=== PATIENT | female | born 1985 | race American Indian/Alaskan Native ===

== ENCOUNTER 2021-02-08 14:38 | Emergency (ER) | payer OTHER ==
[2021-02-08 16:24] VITALS: BP 121/94
--- NOTE | 2021-02-08 16:27 | Emergency Department Report ---
ED Lower Extremity HPI - General Chief Complaint: Extremity Injury, Lower Stated Complaint: FALL ET LEG PAIN Time Seen by Provider: 02/08/21 16:25 Source: patient Mode of arrival: Wheelchair Limitations: Physical Limitation - History of Present Illness Initial Comments: Patient is a 25-year-old female who presents emergency room after a slip and fall that occurred just prior to arrival. Patient reports that she slipped in some water. She is complaining of right ankle pain and right hip pain. She denies any loss of consciousness, vomiting, vision changes, hitting her head, numbness, weakness, bowel or bladder incontinence. She denies ever injuring this leg in the past. No past medical history. No allergies to medications. - Related Data Previous Rx's Medication Instructions Recorded Last Taken Type Naproxen [EC-Naprosyn] 500 mg PO BID PRN #14 tablet. 02/08/21 Unknown Rx Allergies Allergy/AdvReac Type Severity Reaction Status Date / Time No Known Allergies Allergy Unverified 02/08/21 16:17 ED Review of Systems ROS: Stated complaint: FALL ET LEG PAIN Other details as noted in HPI Comment: All other systems reviewed and negative ED Past Medical Hx - Past Medical History Previous Medical History?: No - Surgical History Past Surgical History?: Yes Additional Surgical History: ectopic PG - Medications Home Medications: Home Medications Medication Instructions Recorded Confirmed Last Taken Type Naproxen [EC-Naprosyn] 500 mg PO BID PRN #14 tablet. 02/08/21 Unknown Rx ED Physical Exam - General Limitations: Physical Limitation General appearance: alert, in no apparent distress - Head Head exam: Present: atraumatic, normocephalic - Eye Eye exam: Present: normal appearance - ENT ENT exam: Present: mucous membranes moist - Respiratory Respiratory exam: Absent: respiratory distress, accessory muscle use - Extremities Exam Extremities exam: Present: other (no bony ttp of the RLE, mild discomfort with flexion of the right ankle, no deformity of the RLE, no edema, no ecchymosis, neurovascularly intact) - Neurological Exam Neurological exam: Present: alert, oriented X3 - Psychiatric Psychiatric exam: Present: normal affect, normal mood - Skin Skin exam: Present: warm, dry, intact ED Course Vital Signs 02/08/21 16:23 Temperature 98.2 F Pulse Rate 74 Respiratory 16 Rate Blood Pressure 121/94 [Right] O2 Sat by Pulse 99 Oximetry ED Lower Extremity MDM - Radiology Data Radiology results: report reviewed Ordering Physician: LUIGI CAMARILLO Date of Service: 02/08/21 Procedure(s): XR ankle 3+V RT Accession Number(s): [id number] cc: LUIGI CAMARILLO Fluoro Time In Minutes: . XR ankle 3+V RT INDICATION / CLINICAL INFORMATION: right ankle pain after slip and fall. COMPARISON: None available. FINDINGS: BONES/JOINT(S): No acute fracture or subluxation. No significant degenerative changes. SOFT TISSUES: No significant abnormality. ADDITIONAL FINDINGS: None. Signer Name: Lowell Del Toro MD Signed: 02/08/2021 4:50 PM Workstation Name: [id number] Transcribed By: GODWIN Dictated By: Lowell Del Toro MD Electronically Authenticated By: Lowell Del Toro MD Signed Date/Time: 02/08/211649 DD/ 49 TD/TT: - Medical Decision Making Patient is a 25-year-old female who presents emergency room after a slip and fall that occurred just prior to arrival. Patient reports that she slipped in some water. She is complaining of right ankle pain and right hip pain. She denies any loss of consciousness, vomiting, vision changes, hitting her head, numbness, weakness, bowel or bladder incontinence. She denies ever injuring this leg in the past. No past medical history. No allergies to medications. Vitals are stable. On exam:no bony ttp of the RLE, mild discomfort with flexion of the right ankle, no deformity of the RLE, no edema, no ecchymosis, neurovascularly intact. X-ray right ankle: BONES/JOINT(S): No acute fracture or subluxation. No significant degenerative changes. SOFT TISSUES: No significant abnormality. ADDITIONAL FINDINGS: None. Patient has no signs of acute traumatic fracture or dislocation. Patient was requesting a UDS for her job, discussed with charge nurse Holli and she states that we do not have capabilities to appropriately run a UDS for workers comp, such as monitoring the pt and making sure there is no tampering with the sample, patient was advised to follow-up with [employer] or [employer] in order to receive an appropriate UDS for her job. Patient given prescription for naproxen. Advised patient Please take medication as prescribed as needed. May use ice pack, rest, elevation of the leg. Follow-up with a primary care doctor. Follow-up with your Worker[employer] doctor. Return to emergency room for any new or worse symptoms. Critical care attestation.: If time is entered above; I have spent that time in minutes in the direct care of this critically ill patient, excluding procedure time. ED Disposition Clinical Impression: Right hip pain Fall Qualifiers: Encounter type: initial encounter Qualified Code(s): W19.XXXA - Unspecified fall, initial encounter Right ankle pain Qualifiers: Chronicity: acute Qualified Code(s): M25.571 - Pain in right ankle and joints of right foot Disposition: 01 HOME / SELF CARE / HOMELESS Is pt being admited?: No Does the pt Need Aspirin: No Condition: Stable Instructions: Musculoskeletal Pain Additional Instructions: Please take medication as prescribed as needed. May use ice pack, rest, elevation of the leg. Follow-up with a primary care doctor. Follow-up with your Worker[employer] doctor. Return to emergency room for any new or worse symptoms. Prescriptions: Naproxen [EC-Naprosyn] 500 mg PO BID PRN #14 tablet.dr DONNELLY Reason: pain Referrals: MAGDI BOLIVAR MD [Staff Physician] - 3-5 Days [facility] [Provider Group] - 3-5 Days Forms: Work/School Release Form(ED) Time of Disposition: 17:11 Print Language: BURKINAN
--- NOTE | 2021-02-08 16:54 | XRay Report ---
. XR ankle 3+V RT INDICATION / CLINICAL INFORMATION: right ankle pain after slip and fall. COMPARISON: None available. FINDINGS: BONES/JOINT(S): No acute fracture or subluxation. No significant degenerative changes. SOFT TISSUES: No significant abnormality. ADDITIONAL FINDINGS: None. Signer Name: Lowell Del Toro MD Signed: 02/08/2021 4:50 PM Workstation Name: [email or web address]
== END 2021-02-08 18:04 | disposition home or self-care (01) ==
LOC: EDBD → ED 14:38
DX: M25.551 Pain in right hip (principal); M25.571 Pain in right ankle and joints of right foot; Z98.890 Other specified postprocedural states; W19.XXXA Unspecified fall, initial encounter; Y93.89 Activity, other specified; Y92.89 Other specified places as the place of occurrence of the external cause; Y99.8 Other external cause status
CPT/HCPCS: 99283